=== PATIENT | male | born 1985 | race Caucasian/White ===

== ENCOUNTER 2016-07-29 23:08 | Emergency (ER) | payer SELFPAY ==
[~2016-07-29 23:08] MED LIST: AMOXICILLIN500 M2 PO; FLONASE0.05 MG/AC NS; HYDROCODONE BIT1 T11 PO; Motrin,Rufen800 MG PO; NORCO 10-325 T1 EACH PO; PENICILLIN VK500 MG PO; PREDNICOT20 MG PO; Peridex 473 ML473 ML PO
[2016-07-29] MEDS ORDERED: LIDEX 0.05% CRE15 GM T (23:32)
[2016-07-29] MEDS ORDERED: MEDROL DOSEPAK4 MG PO (23:32)
== END 2016-07-29 23:43 | disposition home or self-care (01) ==
LOC: ED 23:08
DX: L25.5 Unspecified contact dermatitis due to plants, except food (principal)

== ENCOUNTER 2016-08-08 19:33 | Emergency (ER) | payer SELFPAY ==
[~2016-08-08] VITALS: Ht 177.8 cm; Wt 133.8 kg
[~2016-08-08 19:33] MED LIST changes: +LIDEX 0.05% CRE15 GM T; +MEDROL DOSEPAK4 MG PO
[2016-08-08] MEDS ORDERED: FLONASE ALLERG9.9 ML NAS (19:40)
[2016-08-08] MEDS ORDERED: MEDROL DOSEPAK4 MG PO (19:52)
[2016-08-08] MEDS ORDERED: PREDNISONE10 MG PO (19:55)
== END 2016-08-08 19:53 | disposition home or self-care (01) ==
LOC: ED 19:33
DX: L23.6 Allergic contact dermatitis due to food in contact with the skin (principal)

== ENCOUNTER 2017-01-23 18:33 | Emergency (ER) | payer OTHER ==
[~2017-01-23] VITALS: Ht 177.8 cm; Wt 136.1 kg
[~2017-01-23 18:33] MED LIST changes: +FLONASE ALLERG9.9 ML NAS; +PREDNISONE10 MG PO
== END 2017-01-23 20:45 | disposition home or self-care (01) ==
LOC: ED 18:33
DX: M25.512 Pain in left shoulder (principal); Z79.899 Other long term (current) drug therapy; W19.XXXA Unspecified fall, initial encounter; Y93.89 Activity, other specified; Y92.69 Other specified industrial and construction area as the place of occurrence of the external cause; Y99.9 Unspecified external cause status

== ENCOUNTER 2017-08-27 20:22 | Emergency (ER) | payer SELFPAY ==
[~2017-08-27] VITALS: Wt 136.1 kg
[2017-08-27] MEDS ORDERED: Motrin,Rufen800 MG PO (21:14)
[2017-08-27] MEDS ORDERED: CEFADROXIL500 M1 PO (21:14)
== END 2017-08-27 21:25 | disposition home or self-care (01) ==
LOC: ED 20:22
DX: S60.453A Superficial foreign body of left middle finger, initial encounter (principal); Z79.899 Other long term (current) drug therapy; X58.XXXA Exposure to other specified factors, initial encounter; Y93.89 Activity, other specified; Y92.89 Other specified places as the place of occurrence of the external cause; Y99.8 Other external cause status

== ENCOUNTER → 2017-09-28 | Outpatient (CLI) | payer OTHER ==
[~2017-09-28] MED LIST changes: +CEFADROXIL500 M1 PO
--- NOTE | ~2017-09-28 | EKG ---
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
== END | disposition home or self-care (01) ==
LOC: LAB 13:11
PROVIDERS: Orthopaedic Surgery Sports Medicine
DX: Z01.812 Encounter for preprocedural laboratory examination (principal); Z01.810 Encounter for preprocedural cardiovascular examination

== ENCOUNTER 2018-11-08 11:00 | Emergency (ER) | payer SELFPAY ==
[~2018-11-08] VITALS: Ht 177.8 cm; Wt 120.2 kg
[2018-11-08] MEDS ORDERED: NORCO 10-325 T1 EACH PO (11:45)
== END 2018-11-08 11:47 | disposition home or self-care (01) ==
LOC: ED 11:00
DX: K08.89 Other specified disorders of teeth and supporting structures (principal); R68.84 Jaw pain; R03.0 Elevated blood-pressure reading, without diagnosis of hypertension

== ENCOUNTER 2018-11-16 14:29 | Emergency (ER) | payer SELFPAY ==
[~2018-11-16] VITALS: Wt 119.7 kg
[2018-11-16] MEDS ORDERED: AMOXICILLIN500 M2 PO (15:41)
[2018-11-16] MEDS ORDERED: Motrin,Rufen800 MG PO (15:42)
== END 2018-11-16 15:54 | disposition home or self-care (01) ==
LOC: ED 14:29
DX: K02.9 Dental caries, unspecified (principal)

== ENCOUNTER 2019-02-19 17:19 | Emergency (ER) | payer BC ==
[~2019-02-19] VITALS: Ht 180.3 cm; Wt 124.7 kg
== END 2019-02-19 20:02 | disposition home or self-care (01) ==
LOC: ED 17:19
DX: S93.401A Sprain of unspecified ligament of right ankle, initial encounter (principal); Z79.899 Other long term (current) drug therapy; Z79.2 Long term (current) use of antibiotics; W18.42XA Slipping, tripping and stumbling without falling due to stepping into hole or opening, initial encounter; Y93.89 Activity, other specified; Y92.89 Other specified places as the place of occurrence of the external cause; Y99.8 Other external cause status

== ENCOUNTER 2019-03-02 01:17 | Emergency (ER) | payer BC ==
[~2019-03-02] VITALS: Ht 180.3 cm; Wt 127.0 kg
[2019-03-02 01:46] LABS: BASO % 0.4 % (0.0-1.0); EOS # 0.2 10*3/uL (0.0-0.4); HEMATOCRIT 40.3 % (42.0-52.0); LYMPH # 3.6 10*3/uL (1.3-4.4); LYMPH % 36.8 % (27.0-41.0); MEAN CELL VOLUME 85.9 fl (80.0-94.0); MEAN CORPUSCULAR HGB 27.7 pg (27.0-31.0); MEAN CORPUSCULAR HGB CONC 32.3 g/dl (33.0-37.0); MEAN PLATELET VOLUME 8.7 fl (9.6-12.3); MONO # 0.9 10*3/uL (0.1-1.0); MONO % 9.1 % (3.0-9.0); NEUT % 51.5 % (47.0-73.0); PLATELET COUNT AUTOMATED 303 10*3/uL (130-400); RED BLOOD COUNT 4.69 10*6/uL (4.50-5.90); RED CELL DISTRI WIDTH 13.2 % (0-14.5); WHITE BLOOD COUNT 9.7 10*3/uL (4.8-10.8)
[2019-03-02 01:56] LABS: ACT PARTIAL THROMBO TIME 27.9 SECONDS (20.0-32.1)
[2019-03-02 02:03] LABS: ALBUMIN 3.3 gm/dl (3.1-4.5); ALKALINE PHOSPHATASE 79 U/L (45-117); BUN 15 mg/dl (7-24); CHLORIDE 107 mmol/L (98-107); CREATININE 1.14 mg/dL (0.70-1.30); POTASSIUM 3.9 mmol/L (3.5-5.1); SGOT/AST 21 IU/L (3-35); SGPT/ALT 45 U/L (12-78); SODIUM 142 mmol/L (136-145); TOTAL PROTEIN 7.6 gm/dL (6.4-8.2)
[2019-03-02 02:04] LABS: TROPONIN I < 0.015 ng/ml (<0.045)
[2019-03-02] MEDS ORDERED: Motrin,Rufen800 MG PO (04:52)
[2019-03-02] MEDS ORDERED: ZITHROMAX250 MG PO (04:52)
== END 2019-03-02 05:00 | disposition home or self-care (01) ==
LOC: ED 01:17
PROVIDERS: Emergency Medicine Emergency Medical Services
DX: R07.89 Other chest pain (principal); R09.81 Nasal congestion; Z79.2 Long term (current) use of antibiotics; Z79.899 Other long term (current) drug therapy

== ENCOUNTER 2022-01-29 11:40 | Emergency (ER) | payer OTHER ==
[~2022-01-29] VITALS: Ht 177.8 cm; Wt 120.2 kg
[~2022-01-29 11:40] MED LIST changes: +ZITHROMAX250 MG PO
== END 2022-01-29 14:02 | disposition home or self-care (01) ==
LOC: ED 11:40
DX: S71.111A Laceration without foreign body, right thigh, initial encounter (principal); Z79.2 Long term (current) use of antibiotics; Z79.899 Other long term (current) drug therapy; W26.9XXA Contact with unspecified sharp object(s), initial encounter; Y93.89 Activity, other specified; Y92.89 Other specified places as the place of occurrence of the external cause; Y99.8 Other external cause status